=== PATIENT | female | born 1955 | race Two or more races ===

== ENCOUNTER 2018-01-07 13:37 | Outpatient (CLI) | payer OTHER ==
[~2018-01-07 13:37] MED LIST: ACTONEL35 MG PO; BONIVA2.5 MG PO; VYTORIN 10-20 M1 TAB PO
== END 2018-01-07 13:41 | disposition home or self-care (01) ==
LOC: NUCLEAR 13:37
DX: M81.0 Age-related osteoporosis without current pathological fracture (principal)

== ENCOUNTER → 2018-01-23 | Outpatient (CLI) | payer OTHER | END | disposition home or self-care (01) | LOC: SONOGRAMA 09:52 | DX: E04.2 Nontoxic multinodular goiter (principal) ==

== ENCOUNTER → 2018-12-09 | Outpatient (CLI) | payer OTHER | END | disposition home or self-care (01) | LOC: NUCLEAR 07:00 | DX: I20.9 Angina pectoris, unspecified (principal) | CPT/HCPCS: 78452; 93017; A9500 ==

== ENCOUNTER 2019-05-18 09:05 | Outpatient (CLI) | payer OTHER | END 2019-05-18 09:12 | disposition home or self-care (01) | LOC: NUCLEAR 09:05 | DX: D44.0 Neoplasm of uncertain behavior of thyroid gland (principal) | CPT/HCPCS: 78013; A9512 ==

== ENCOUNTER 2020-01-11 08:48 | Outpatient (CLI) | payer OTHER | END 2020-01-11 08:51 | disposition home or self-care (01) | LOC: SONOGRAMA 08:48 | DX: E04.1 Nontoxic single thyroid nodule (principal) ==

== ENCOUNTER 2020-05-05 11:45 | Outpatient (CLI) | payer OTHER | END 2020-05-05 12:02 | disposition home or self-care (01) | LOC: SONOGRAMA 11:45 | PROVIDERS: ATTEND Pathology Anatomic Pathology | DX: E04.2 Nontoxic multinodular goiter (principal) ==

== ENCOUNTER 2020-07-20 07:00 | Inpatient (IN) | payer OTHER ==
[~2020-07-20] VITALS: Ht 157.5 cm; Wt 51.7 kg
[2020-07-20] MEDS ORDERED: BREO ELLIPTA 21 EACH IH (09:13)
[2020-07-20] MEDS ORDERED: ATORVASTATIN CA10 MG PO (09:13)
[2020-07-20] MEDS ORDERED: XOPENEX HFA15 GM IH (09:13)
[2020-07-20] MEDS ORDERED: PREMARIN0.45 MG PO (09:14)
[2020-07-28] MEDS ORDERED: PERCOCET 5-3251 EACH PO (08:46)
[2020-07-28] MEDS ORDERED: SYNTHROID75 MCG PO (08:47)
== END 2020-07-28 09:14 | disposition home or self-care (01) | DRG 627 ==
LOC: ADM 07:00 → EDSTATUS 07:00 → SURH 07-26 07:00 → O/R 07-27 06:23 → SURH 07-27 06:23
PROVIDERS: ADMIT Surgery; ATTEND Surgery
PROC: 0GTG0ZZ Resection of Left Thyroid Gland Lobe, Open Approach (ICD-10-PCS; 2020-07-27)
PROC: 0GTH0ZZ Resection of Right Thyroid Gland Lobe, Open Approach (ICD-10-PCS; principal; 2020-07-27 08:00)
DX: C73 Malignant neoplasm of thyroid gland (principal)

== ENCOUNTER 2020-08-02 12:41 | Emergency (ER) | payer OTHER ==
[~2020-08-02] VITALS: Ht 157.5 cm; Wt 51.7 kg
[~2020-08-02 12:41] MED LIST changes: +ATORVASTATIN CA10 MG PO; +BREO ELLIPTA 21 EACH IH; +PERCOCET 5-3251 EACH PO; +PREMARIN0.45 MG PO; +SYNTHROID75 MCG PO; +XOPENEX HFA15 GM IH
[2020-08-02] MEDS ORDERED: ATORVASTATIN CA10 MG (12:53)
[2020-08-02] MEDS ORDERED: NORFLEX100MG PO (15:11)
== END 2020-08-02 16:25 | disposition home or self-care (01) ==
LOC: ER 12:41
DX: M54.2 Cervicalgia (principal)

== ENCOUNTER 2020-08-27 22:08 | Emergency (ER) | payer OTHER ==
[~2020-08-27] VITALS: Ht 157.5 cm; Wt 52.2 kg
[~2020-08-27 22:08] MED LIST changes: +ATORVASTATIN CA10 MG; +NORFLEX100MG PO
[2020-08-28] MEDS ORDERED: PEPCID AC20 MG PO (06:24)
[2020-08-28] MEDS ORDERED: TAMS0.4C PO (06:24)
[2020-08-28] MEDS ORDERED: ULTRAM50 MG PO (06:24)
== END 2020-08-28 06:25 | disposition home or self-care (01) ==
LOC: ER 22:08
DX: N20.0 Calculus of kidney (principal); N28.1 Cyst of kidney, acquired; K76.89 Other specified diseases of liver; R10.11 Right upper quadrant pain; Z03.818 Encounter for observation for suspected exposure to other biological agents ruled out

== ENCOUNTER → 2021-01-24 12:59 | Outpatient (CLI) | payer OTHER ==
[~2021-01-24 12:59] MED LIST changes: +PEPCID AC20 MG PO; +TAMS0.4C PO; +ULTRAM50 MG PO
== END | disposition home or self-care (01) ==
LOC: LAB 12:59
PROVIDERS: ATTEND Radiology Diagnostic Radiology
DX: M94.0 Chondrocostal junction syndrome [Tietze] (principal)

== ENCOUNTER 2021-01-30 07:56 | Outpatient (CLI) | payer OTHER | END 2021-01-30 08:12 | disposition home or self-care (01) | LOC: TOM 07:56 | DX: M94.0 Chondrocostal junction syndrome [Tietze] (principal); M25.512 Pain in left shoulder; M50.30 Other cervical disc degeneration, unspecified cervical region ==

== ENCOUNTER 2021-04-03 09:08 | Outpatient (CLI) | payer OTHER | END 2021-04-03 09:16 | disposition home or self-care (01) | LOC: NUCLEAR 09:08 | PROVIDERS: ATTEND Internal Medicine Cardiovascular Disease | DX: I47.1 Supraventricular tachycardia (principal) ==

== ENCOUNTER 2022-09-21 07:24 | Outpatient (CLI) | payer OTHER | END 2022-09-21 07:29 | disposition home or self-care (01) | LOC: LAB 07:24 | PROVIDERS: ATTEND Internal Medicine | DX: U07.1 COVID-19 (principal) ==

== ENCOUNTER 2022-09-21 08:07 | Outpatient (CLI) | payer OTHER | END 2022-09-21 08:08 | disposition home or self-care (01) | LOC: NUCLEAR 08:07 | PROVIDERS: ATTEND Internal Medicine Cardiovascular Disease | DX: I10 Essential (primary) hypertension (principal) ==